=== PATIENT | male | born 1990 | race Two or more races ===

== ENCOUNTER 2016-08-02 14:55 | Emergency (ER) | payer MEDICAID ==
[~2016-08-02] VITALS: Ht 180.3 cm; Wt 113.3 kg
[2016-08-02] MEDS ORDERED: SODIUM CHLORIDE 0.9% 1,000ML IVBOLUS ONE (15:30)
[2016-08-02] MEDS ORDERED: SODIUM CHLORIDE FLUSH 10ML SYR IVF ONE (15:30)
[2016-08-02 15:50] LABS: HEMOGLOBIN 15.6 g/dL (13.7-18.0)
[2016-08-02 15:58] LABS: ASPARTATE AMINO TRANSFERASE 16 U/L (15-37); BLOOD UREA NITROGEN 7 mg/dL (7-18)
[2016-08-02] MEDS ORDERED: OMNIPAQUE 350 MG/ML, 150 ML BOTTLE ONE (18:03)
[2016-08-02] MEDS ORDERED: ONDANSETRON 2MG/ML, 2ML ONE (19:51)
[2016-08-02] MEDS ORDERED: HYDROmorphone 1 MG/ML, 1ML ONE (19:51)
[2016-08-02] MEDS ORDERED: ONDANSETRON 2MG/ML, 2ML IVPush ONE (20:00)
[2016-08-02] MEDS ORDERED: HYDROmorphone 1 MG/ML, 1ML IVPush PRN (20:00)
[2016-08-02 20:51] VITALS: BP 111/62
== END 2016-08-02 21:08 | disposition home or self-care (01) ==
LOC: ED 16:32
DX: A09 Infectious gastroenteritis and colitis, unspecified (principal); A04.9 Bacterial intestinal infection, unspecified
CPT/HCPCS: 36415; 74177; 80053; 81003; 83690; 85025; 87324; 89055; 96361; 96374; 96375; 99285; J1170; J2405; J7030; Q9967

== ENCOUNTER 2016-08-05 16:38 | Emergency (ER) | payer MEDICAID ==
[~2016-08-05] VITALS: Ht 182.9 cm; Wt 113.2 kg
[2016-08-05] MEDS ORDERED: SODIUM CHLORIDE 0.9% 1,000ML IVBOLUS ONE (17:30)
[2016-08-05] MEDS ORDERED: SODIUM CHLORIDE FLUSH 10ML SYR IVF ONE (17:30)
[2016-08-05 18:02] LABS: HEMOGLOBIN 14.1 g/dL (13.7-18.0)
[2016-08-05 18:05] LABS: ASPARTATE AMINO TRANSFERASE 10 U/L (15-37); BLOOD UREA NITROGEN 7 mg/dL (7-18)
[2016-08-05 19:36] VITALS: BP 120/78
[2016-08-05] MEDS ORDERED: CEPH-368 PO (19:38)
== END 2016-08-05 19:52 | disposition home or self-care (01) ==
LOC: ED 17:32
DX: G89.29 Other chronic pain (principal); R10.32 Left lower quadrant pain; K52.89 Other specified noninfective gastroenteritis and colitis; A04.7 Enterocolitis due to Clostridium difficile
CPT/HCPCS: 36415; 80053; 81001; 83690; 85025; 87086; 96360; 99284; J7030

== ENCOUNTER 2016-08-22 16:10 | Emergency (ER) | payer MEDICAID ==
[~2016-08-22] VITALS: Ht 180.3 cm; Wt 109.0 kg
[~2016-08-22 16:10] MED LIST: CEPH-368 PO
[2016-08-22] MEDS ORDERED: ONDANSETRON 2MG/ML, 2ML IVPush ONE (17:00)
[2016-08-22] MEDS ORDERED: HYDROmorphone 1 MG/ML, 1ML IVPush PRN (17:00)
[2016-08-22] MEDS ORDERED: SODIUM CHLORIDE 0.9% 1,000ML IVBOLUS ONE (17:00)
[2016-08-22] MEDS ORDERED: SODIUM CHLORIDE FLUSH 10ML SYR IVF ONE (17:00)
[2016-08-22 17:11] LABS: BLOOD UREA NITROGEN 7 mg/dL (7-18)
[2016-08-22 17:14] LABS: ASPARTATE AMINO TRANSFERASE 16 U/L (15-37)
[2016-08-22] MEDS ORDERED: ONDANSETRON 2MG/ML, 2ML ONE (17:35)
[2016-08-22] MEDS ORDERED: HYDROmorphone 1 MG/ML, 1ML ONE (17:35)
[2016-08-22 21:58] VITALS: BP 127/78
== END 2016-08-22 22:11 | disposition home or self-care (01) ==
LOC: ED 20:37
DX: R10.32 Left lower quadrant pain (principal); R19.7 Diarrhea, unspecified; R10.30 Lower abdominal pain, unspecified
CPT/HCPCS: 36415; 80053; 81001; 83690; 85025; 87324; 89055; 96361; 96374; 96375; 99285; J1170; J2405; J7030